=== PATIENT | female | born 1995 | race Caucasian/White ===

== ENCOUNTER 2017-02-01 18:13 | Emergency (ER) | payer BC ==
--- NOTE | 2017-02-01 18:24 | EDM.PDOC ---
ED HPI Trauma - General Chief Complaint: Upper Extremity Injury/Pain Stated Complaint: PT HAS JOY ON LT UNDERARM Time Seen by Provider: 02/01/17 18:20 Source: Reports: Patient History Limitations: Reports: No limitations - History of Present Illness Occurred When: last week Occurred Where: home Method of Injury: unknown Severity: mild Pain/Injury Location: Reports: chest Consciousness: Reports: no loss of consciousness Associated Symptoms: Reports: no other symptoms Allergies/ADRs: Allergies No Known Allergies Allergy (Verified 02/01/17 18:22) Home Medications: Ambulatory Orders Ibuprofen 600 mg PO Q8HR PRN #30 tablet 08/13/14 [Confirmed 02/01/17] DULoxetine [Cymbalta] 02/01/17 Sulfamethoxazole/Trimethoprim [Bactrim Ds Tablet] 1 each PO BID #10 tablet 02/01 buPROPion [Wellbutrin] 02/01/17 Social & Family History - Tobacco Use Smoking Status *Q: Never Smoker Years of Tobacco use: 5 Second Hand Smoke Exposure: Yes - Alcohol Use Days Per Week of Alcohol Use: 0 - Recreational Drug Use Recreational Drug Use: No Review of Systems - Review of Systems Review Of Systems: ROS reveals no pertinent complaints other than HPI. Trauma Exam - Physical Exam Exam: See Below Exam Limited By: No limitations General Appearance: Reports: alert, WD/WN Head: Reports: atraumatic, normocephalic Eyes: bilateral eye: PERRL Ears: Reports: normal external exam Nose: Reports: normal inspection Throat/Mouth: Reports: Normal inspection, Normal lips, Normal teeth, Normal gums , Normal oropharynx, Normal voice, No airway compromise Neck: Reports: non-tender, full range of motion Respiratory Exam: Reports: no respiratory distress, lungs clear, normal breath sounds, no accessory muscle use, chest non-tender Cardiovascular: Reports: normal peripheral pulses, regular rate, rhythm, no edema, no gallop, no JVD, no murmur, no rub Extremities: Reports: no evidence of injury, normal range of motion, no pedal edema Neurologic: Reports: no motor/sensory deficits, normal mood/affect, oriented x 3 Skin: Reports: Normal color, Warm/dry, Rash Comments: Raised erythematous shiny rash no exudate there with palpation - [place] Coma Score Best Eye Response ([place]): (4) open spontaneously Best Verbal Response (Randy): (5) oriented Best Motor Response (Radny): (6) obeys commands Course - Vital Signs Last Recorded V/S: Last Vital Signs Temp 36.6 C 02/01/17 18:24 Pulse 115 H 02/01/17 18:24 Resp 16 02/01/17 18:24 BP 110/81 02/01/17 18:24 Pulse Ox 100 02/01/17 18:24 - Orders/Labs/Meds Meds: Medications Discontinued Medications Generic Name Dose Route Start Last Admin Trade Name Serene PRN Reason Stop Dose Admin Bacitracin 1 dose 02/01/17 18:33 Bacitracin Oint 1 Gm TOP 02/01/17 18:34 ONETIME ONE Departure - Departure Time of Disposition: 18:36 Disposition: Home, Self-Care 01 Condition: good Clinical Impression: Staph infection Prescriptions: Sulfamethoxazole/Trimethoprim [Bactrim Ds Tablet] 1 each PO BID #10 tablet Forms: ED Department Discharge Additional Instructions: The following information is given to patients seen in the emergency department who are being discharged to home. This information is to outline your options for follow-up care. We provide all patients seen in our emergency department with a follow-up referral. The need for follow-up, as well as the timing and circumstances, are variable depending upon the specifics of your emergency department visit. If you don't have a primary care physician on staff, we will provide you with a referral. We always advise you to contact your personal physician following an emergency department visit to inform them of the circumstance of the visit and for follow-up with them and/or the need for any referrals to a consulting specialist. The emergency department will also refer you to a specialist when appropriate. This referral assures that you have the opportunity for followup care with a specialist. All of these measure are taken in an effort to provide you with optimal care, which includes your followup. Under all circumstances we always encourage you to contact your private physician who remains a resource for coordinating your care. When calling for followup care, please make the office aware that this follow-up is from your recent emergency room visit. If for any reason you are refused follow-up, please contact the [facility] emergency department at and asked to speak to the emergency department charge nurse.
[2017-02-01] MEDS ORDERED: Bacitracin Oint 1 GM U/D Packet TOP ONE (18:33)
[2017-02-01 18:47] VITALS: BP 109/65
== END 2017-02-01 18:45 | disposition home or self-care (01) ==
LOC: MW.ED 18:13
DX: B95.8 Unspecified staphylococcus as the cause of diseases classified elsewhere (principal)
CPT/HCPCS: 99282; 99283

== ENCOUNTER 2017-02-10 07:26 | Emergency (ER) | payer BC ==
[2017-02-10] MEDS ORDERED: Ketorolac 60 MG/2 ML SDV IM ONE (07:52)
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
[2017-02-10] MEDS ORDERED: Phenazopyridine 200 MG Tab PO ONE (08:24)
[2017-02-10] MEDS ORDERED: Ciprofloxacin 500 MG Tab PO ONE (08:24)
[2017-02-10 10:02] VITALS: BP 118/86
== END 2017-02-10 09:43 | disposition home or self-care (01) ==
LOC: MW.ED 07:26
DX: N39.0 Urinary tract infection, site not specified (principal); F41.9 Anxiety disorder, unspecified; F32.9 Major depressive disorder, single episode, unspecified; F17.210 Nicotine dependence, cigarettes, uncomplicated
CPT/HCPCS: 81001; 81025; 87086; 96372; 99283; A9270; J1885; 87088; 87186

== ENCOUNTER 2017-06-20 15:41 | Emergency (ER) | payer BC, OTHER ==
[2017-06-20 16:05] VITALS: BP 135/91
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
--- NOTE | 2017-06-21 10:51 | CR ---
EXAM DATE: 06/20/17 PATIENT'S AGE: 22 Patient: PARUL WOOD Facility: [place], [place] Site . Site : 1995 Study: XRay Pelvis [id number]/[id number] 6:04:32 PM Ordering Physician: Doctor Younger Final Report: INDICATION: Pain, Possible Foreign Body TECHNIQUE: Single AP view of the bony pelvis COMPARISON: None FINDINGS: Bones: No gross evidence for fractures or bone lesions. Joint spaces: Unremarkable. Soft tissues: No radiopaque foreign body. IMPRESSION: No radiopaque foreign body. No gross evidence for acute bony abnormality Dictated by Damian Villanueva MD @ 06/20/2017 6:28:14 PM Dictated by: Damian Villanueva MD @ 06/20/2017 18:28:20 (Electronic Signature) Report Signed by Proxy. [facility]
== END 2017-06-20 19:10 ==
LOC: MW.ED 15:41
DX: T19.2XXA Foreign body in vulva and vagina, initial encounter (principal); F17.210 Nicotine dependence, cigarettes, uncomplicated
CPT/HCPCS: 72170; 72170-26; 99283; 99284

== ENCOUNTER 2017-07-24 19:32 | Emergency (ER) | payer BC ==
[2017-07-24 19:41] VITALS: BP 120/71
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
== END 2017-07-24 20:17 | disposition home or self-care (01) ==
LOC: MW.ED 19:32
DX: J40 Bronchitis, not specified as acute or chronic (principal); F32.9 Major depressive disorder, single episode, unspecified; F17.210 Nicotine dependence, cigarettes, uncomplicated
CPT/HCPCS: 99282

== ENCOUNTER 2017-09-24 06:53 | Emergency (ER) | payer BC ==
[2017-09-24 16:40] VITALS: BP 117/73
== END 2017-09-24 07:21 | disposition home or self-care (01) ==
LOC: MW.ED 06:53
DX: B34.9 Viral infection, unspecified (principal)
CPT/HCPCS: 87081; 87804; 87880; 99283

== ENCOUNTER 2018-10-27 14:11 | Emergency (ER) | payer BC ==
[2018-10-27] MEDS ORDERED: Sodium Chloride 0.9% 1,000 ML IV ONE ×2 (15:02→16:34)
[2018-10-27] MEDS ORDERED: Ondansetron 4 MG/2 ML SDV IVPUSH ONE (15:02)
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
[2018-10-27 16:25] LABS: CHLORIDE,CL 102 mmol/L (98-107); SODIUM,NA 137 mmol/L (136-145)
--- NOTE | 2018-10-27 17:46 | US ---
INDICATION: Abdominal pain TECHNIQUE: Limited transabdominal obstetrical ultrasound. COMPARISON: None available FINDINGS: A single live intrauterine gestation is seen in breech presentation. Estimated gestational age based on biparietal diameter, head circumference, abdominal circumference and femur length is 27 weeks and 1 day. There is cardiac activity with a heart rate of 126 BPM. anatomy is not evaluated. The right renal pelvis is measured at 5 mm. The placenta is posterior. The internal cervical os is clear of placental tissue. The cervix measures 3.3 cm. Amniotic fluid volume is within normal limits with an ARGELIA of 15.8 cm. Neither ovary is visualized. No significant free fluid is seen. IMPRESSION: A single live intrauterine gestation at 27 weeks and 1 day by sonographic measurements. The right renal pelvis is measured at 5 mm. anatomy, otherwise, is not evaluated. Correlate with followup sonographic evaluation, as clinically indicated. Nonvisualization of the ovaries. Dictated by Jason Bravo MD @ 10/27/2018 5:40:40 PM Dictated by: Jason Bravo MD @ 10/27/2018 17:44:24 (Electronically Signed)
[2018-10-27 18:11] VITALS: BP 106/58
== END 2018-10-27 18:25 | disposition home or self-care (01) ==
LOC: MW.ED 14:11
DX: O23.42 Unspecified infection of urinary tract in pregnancy, second trimester (principal); Z3A.27 27 weeks gestation of pregnancy; F17.210 Nicotine dependence, cigarettes, uncomplicated
CPT/HCPCS: 36415; 76815; 80053; 81001; 85025; 87804; 93005; 96361; 96374; 99284; J2405; J7040

== ENCOUNTER 2019-01-12 14:13 | Inpatient (IN) | payer BC, MEDICAID ==
[2019-01-12] MEDS ORDERED: Citric Acid/Sodium Citrate Solution 30 ML Cup PO ONE (14:31)
[2019-01-12] MEDS ORDERED: ceFAZolin 2 GM in Premix Bag 1 BAG IV ONE (14:31)
[2019-01-12] MEDS ORDERED: Sodium Chloride 0.9% 10 ML Syringe FLUSH PRN (14:31)
[2019-01-12] MEDS ORDERED: Sodium Chloride 0.9% 10 ML SDV IV PRN (14:31)
[2019-01-12] MEDS ORDERED: Sodium Chloride 0.9% 2.5 ML Syringe FLUSH PRN (14:31)
--- NOTE | 2019-01-12 14:41 | PCM.LDHP ---
L&D History of Present Illness - General Date of Service: 01/12/19 Admit Problem/Dx: Patient Status Order with Admit Dx/Problem 01/12/19 14:31 Patient Status [ADT] Routine Admission Diagnosis/Problem Admission Diagnosis/Problem Source of Information: Patient History Limitations: Reports: No Limitations - History of Present Illness Improves with: Reports: None Worsens with: Reports: None Associated Symptoms: Reports: N - Related Data Allergies/Adverse Reactions: Allergies Allergy/AdvReac Type Severity Reaction Status Date / Time No Known Allergies Allergy Verified 01/09/19 11:14 Home Medications: Home Meds Ondansetron [Zofran ODT] 4 mg PO Q6H PRN #10 tab.dis 10/27/18 [Rx] Cyclobenzaprine [Flexeril] 5 mg PO BEDTIME PRN 12/29/18 [History] Past Medical History HEENT History: Reports: Other (See Below) Other HEENT History: wears glasses Cardiovascular History: Reports: None Other Cardiovascular History: pt reports hx of wearing heart monitor at age 15, pt states there was no dx Respiratory History: Reports: Other (See Below) Other Respiratory History: sports induced asthma in highschool Gastrointestinal History: Reports: None Genitourinary History: Reports: None ADMINISTRATION INTERN History: Reports: Other OB/BYN History: 7 months - Estimated due date 01/20/19 Musculoskeletal History: Reports: None Neurological History: Reports: None Psychiatric History: Reports: ADHD, Anxiety, Depression, Other (See Below) Other Psychiatric History: depression, anxiety and ADHD in the past Endocrine/Metabolic History: Reports: None Hematologic History: Reports: None Immunologic History: Reports: None Oncologic (Cancer) History: Reports: None Dermatologic History: Reports: Eczema - Infectious Disease History Infectious Disease History: Reports: Chicken Pox - Past Surgical History Head Surgeries/Procedures: Reports: None HEENT Surgical History: Reports: None Cardiovascular Surgical History: Reports: None Respiratory Surgical History: Reports: None GI Surgical History: Reports: None Female Surgical History: Reports: Section Endocrine Surgical History: Reports: None Neurological Surgical History: Reports: None Musculoskeletal Surgical History: Reports: None Oncologic Surgical History: Reports: None Social & Family History - Family History Family Medical History: Noncontributory - Tobacco Use Smoking Status *Q: Current Every Day Smoker Packs/Tins Daily: 0.7 - Caffeine Use Caffeine Use: Reports: Coffee - Recreational Drug Use Recreational Drug Use: No H&P Review of Systems - Review of Systems: Review Of Systems: See Below General: Reports: No Symptoms HEENT: Reports: No Symptoms Pulmonary: Reports: No Symptoms Cardiovascular: Reports: No Symptoms Gastrointestinal: Reports: No Symptoms Genitourinary: Reports: No Symptoms Musculoskeletal: Reports: No Symptoms Skin: Reports: No Symptoms Psychiatric: Reports: No Symptoms Neurological: Reports: No Symptoms Hematologic/Lymphatic: Reports: No Symptoms Immunologic: Reports: No Symptoms L&D Exam - Exam Exam: See Below - Vital Signs Weight: 77.564 kg - OB Specific Fundal Height In cm: 39 Contraction Intensity: Mild Movement: Active Heart Tones: Present Presentation: Breech - Shaw Score Shaw Score Cervix Position: Midposition Shaw Score Consistency: Medium Shaw Score Effacement: 31-50% Shaw Score Dilation: 1-2 cm Shaw Score 's Station: -3 Shaw Score Total: 4 - Exam General: Alert, Oriented HEENT: PERRLA, Conjunctiva Clear, EACs Clear, EOMI, Hearing Intact, Mucosa Moist & [place], Nares Patent, Normal Nasal Septum, Posterior Pharynx Clear, TMs Clear Neck: Supple, Trachea Midline Lungs: Clear to Auscultation, Normal Respiratory Effort Cardiovascular: Regular Rate, Regular Rhythm GI/Abdominal Exam: Normal Bowel Sounds, Soft, Non-Tender, No Organomegaly, No Distention, No Abnormal Bruit, No Mass, Pelvis Stable Rectal Exam: Normal Exam, Normal Rectal Tone Genitourinary: Normal external exam, Normal bimanual exam, Normal speculum exam Back Exam: Normal Inspection, Full Range of Motion Extremities: Normal Inspection, Normal Range of Motion, Non-Tender, No Pedal Edema, Normal Capillary Refill Skin: Warm, Dry, Intact Neurological: Cranial Nerves Intact, Reflexes Equal Bilateral Psychiatric: Alert, Normal Affect, Normal Mood Problem List Initiated/Reviewed/Updated: Yes Orders Last 24hrs: Active Orders 24 hr Category Date Time Status Patient Status [ADT] Routine ADT 01/12/19 14:31 Ordered Non Stress Test [RC] PER UNIT ROUTINE Care 01/12/19 14:31 Ordered Notify Provider Vital Signs [RC] PRN Care 01/12/19 14:35 Ordered Procedure Site Prep Instruct [RC] ASDIRECTED Care 01/12/19 14:31 Ordered Up ad Loly [RC] ASDIRECTED Care 01/12/19 14:31 Ordered Verify Patient Consent Obtain [RC] ASDIRECTED Care 01/12/19 14:31 Ordered Vital Signs [RC] PER UNIT ROUTINE Care 01/12/19 14:31 Ordered CBC W/O DIFF,HEMOGRAM [HEME] Routine Lab 01/12/19 14:31 Ordered TYPE AND SCREEN [BBK] Routine Lab 01/12/19 14:31 Ordered Citric Acid/Sodium Citrate [Bicitra Solution] Med 01/12/19 14:31 Once 30 ml PO ONETIME ONE Lactated Ringers [Ringers, Lactated] 1,000 ml Med 01/12/19 14:45 Ordered IV BOLUS ceFAZolin [Ancef] 2 gm Med 01/12/19 14:31 Ordered Premix Bag 1 bag IV ONETIME Assessment/Plan Comment:: This patient is followed joining me by me and Estela Hi_nurse fulling machine operator the patient have a previous section she was planning to have a trial of labor however she is presented with a breech presentation and was confirmed by ultrasound. 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
[2019-01-12] MEDS ORDERED: Oxytocin/0.9 % Sodium Chloride 30 UNIT/500 ML BAG IV SCH (14:45)
[2019-01-12] MEDS: Lactated Ringers 1,000 ML IV SCH ×2 (14:50→16:48)
[2019-01-12] MEDS ORDERED: Metoclopramide 10 MG/2 ML SDV IVPUSH SCH (15:30)
[2019-01-12] MEDS ORDERED: Acetaminophen/oxyCODONE 325-5 MG Tab PO PRN ×2 (16:47→17:23)
[2019-01-12] MEDS ORDERED: Ondansetron 4 MG/2 ML SDV IVPUSH PRN ×2 (16:47→17:23)
[2019-01-12] MEDS ORDERED: Naloxone 0.4 MG/ML Syringe IVPUSH PRN (16:47)
[2019-01-12] MEDS ORDERED: fentaNYL 100 MCG/2 ML SDV IVPUSH PRN (16:47)
[2019-01-12] MEDS ORDERED: diphenhydrAMINE 50 MG/ML SDV IVPUSH PRN ×2 (16:47→17:23)
--- NOTE | 2019-01-12 16:47 | PCM.PREANE ---
Preanesthetic Assessment - Anesthesia/Transfusion/Family Hx Anesthesia History: Prior Anesthesia Without Reaction Other Type of Anesthesia Reaction Comment: "freaked out" with first c/section after baby was delivered Transfusion History: No Prior Transfusion(s) - Review of Systems General: No Symptoms Pulmonary: No Symptoms Cardiovascular: No Symptoms Gastrointestinal: No Symptoms Neurological: No Symptoms - Physical Assessment NPO Status Date: 01/12/19 NPO Status Time: 01:30 (t aware of increased risks Dotty Conway states needs to be done, necesitates "delivery at 17:30". per Dr. Conway.) Height: 1.63 m Weight: 77.564 kg ASA Class: 2E Mental Status: Alert & Oriented x3 Airway Class: Mallampati = 2 Dentition: Reports: Normal Dentition ROM/Head Extension: Full Lungs: Clear to Auscultation, Normal Respiratory Effort Cardiovascular: Regular Rate, Regular Rhythm - Lab Values: Laboratory Last Values WBC 12.01 K/uL (4.0-11.0) H 01/12/19 15:01 RBC 3.84 M/uL (4.30-5.90) L 01/12/19 15:01 Hgb 11.5 g/dL (12.0-16.0) L 01/12/19 15:01 Hct 34.2 % (36.0-46.0) L 01/12/19 15:01 MCV 89.1 fL (80.0-98.0) 01/12/19 15:01 MCH 29.9 pg (27.0-32.0) 01/12/19 15:01 MCHC 33.6 g/dL (31.0-37.0) 01/12/19 15:01 RDW Std Deviation 42.4 fl (28.0-62.0) 01/12/19 15:01 RDW Coeff of Tessa 13 % (11.0-15.0) 01/12/19 15:01 Plt Count 274 K/uL (150-400) 01/12/19 15:01 MPV 11.70 fL (7.40-12.00) 01/12/19 15:01 Nucleated RBC % 0.0 /100WBC 01/12/19 15:01 Nucleated RBCs # 0 K/uL 01/12/19 15:01 - Allergies Allergies/Adverse Reactions: Allergies Allergy/AdvReac Type Severity Reaction Status Date / Time No Known Allergies Allergy Verified 01/09/19 11:14 - Acknowledgements Anesthesia Type Planned: Spinal Pt an Appropriate Candidate for the Planned Anesthesia: Yes Alternatives and Risks of Anesthesia Discussed w Pt/Guardian: Yes Pt/Guardian Understands and Agrees with Anesthesia Plan: Yes PreAnesthesia Questionnaire HEENT History: Reports: Other (See Below) Other HEENT History: wears glasses Cardiovascular History: Reports: None Other Cardiovascular History: pt reports hx of wearing heart monitor at age 15, pt states there was no dx Respiratory History: Reports: Other (See Below) Other Respiratory History: sports induced asthma in highschool Gastrointestinal History: Reports: None Genitourinary History: Reports: None [employer] History: Reports: Other OB/BYN History: 7 months - Estimated due date 01/20/19 Musculoskeletal History: Reports: None Neurological History: Reports: None Psychiatric History: Reports: ADHD, Anxiety, Depression, Other (See Below) Other Psychiatric History: depression, anxiety and ADHD in the past Endocrine/Metabolic History: Reports: None Hematologic History: Reports: None Immunologic History: Reports: None Oncologic (Cancer) History: Reports: None Dermatologic History: Reports: Eczema - Infectious Disease History Infectious Disease History: Reports: Chicken Pox - Past Surgical History Head Surgeries/Procedures: Reports: None HEENT Surgical History: Reports: None Cardiovascular Surgical History: Reports: None Respiratory Surgical History: Reports: None GI Surgical History: Reports: None Female Surgical History: Reports: Section Endocrine Surgical History: Reports: None Neurological Surgical History: Reports: None Musculoskeletal Surgical History: Reports: None Oncologic Surgical History: Reports: None - SUBSTANCE USE Smoking Status *Q: Current Every Day Smoker Tobacco Use Within Last Twelve Months: Cigarettes Second Hand Smoke Exposure: Yes Recreational Drug Use History: No - HOME MEDS Home Medications: Home Meds Ondansetron [Zofran ODT] 4 mg PO Q6H PRN #10 tab.dis 10/27/18 [Rx] Cyclobenzaprine [Flexeril] 5 mg PO BEDTIME PRN 12/29/18 [History] - CURRENT (IN HOUSE) MEDS Current Meds: Current Medications Lactated Ringer's (Ringers, Lactated) 1,000 mls @ 500 mls/hr IV BOLUS [facility] Last Admin: 01/12/19 14:50 Dose: 500 mls/hr Oxytocin/Sodium Chloride (Oxytocin 30 Unit/500 Ml-Ns) 30 unit in 500 mls @ 250 mls/hr IV TITRATE [facility] Metoclopramide HCl (Reglan) 10 mg IVPUSH .ONCE [facility] Last Admin: 01/12/19 15:34 Dose: 10 mg Sodium Chloride (Saline Flush) 10 ml FLUSH ASDIRECTED PRN PRN Reason: Keep Vein Open Sodium Chloride (Saline Flush) 2.5 ml FLUSH ASDIRECTED PRN PRN Reason: Keep Vein Open Sodium Chloride (Normal Saline) 10 ml IV ASDIRECTED PRN PRN Reason: IV Use Discontinued Medications Citric Acid/Sodium Citrate (Bicitra Solution) 30 ml PO ONETIME ONE Stop: 01/12/19 14:32 Cefazolin Sodium/Dextrose 2 gm (/ Premix) 50 mls @ 100 mls/hr IV ONETIME ONE Stop: 01/12/19 15:00
[2019-01-12] MEDS ORDERED: Octyl 2-Cyanoacrylate 1 Tube ONE (16:53)
[2019-01-12] MEDS ORDERED: Morphine PF 10 MG/10 ML SDV ONE (16:54)
[2019-01-12] MEDS ORDERED: Lanolin 100% Cream 7 GM Tube TOP PRN (17:23)
[2019-01-12] MEDS ORDERED: Bisacodyl 10 MG Supp RECTAL PRN (17:23)
[2019-01-12] MEDS ORDERED: Lactated Ringers 1,000 ML IV SCH (17:30)
[2019-01-12] MEDS: Ketorolac 30 MG/ML SDV IVPUSH SCH ×2 (18:00→23:56)
--- NOTE | 2019-01-12 18:04 | PCM.OPNOTE ---
- General Post-Op/Procedure Note Date of Surgery/Procedure: 01/12/19 Operative Procedure(s): Repeat C/section Pre Op Diagnosis: IUP 39wks, Previous C/section, Breech presentation Post-Op Diagnosis: Same Anesthesia Technique: General Mask Primary Surgeon: Valerio Conway Medical Insurance Clerk: Estela Hi EBL in mLs: 600 Complications: None Condition: Good
--- NOTE | 2019-01-12 19:15 | PCM.POSTAN ---
POST ANESTHESIA ASSESSMENT - MENTAL STATUS Mental Status: Alert - VITAL SIGNS Pulse Rate: 75 SaO2: 98 Resp Rate: 98 Blood Pressure: 118/62 Temperature: 97.2 C - RESPIRATORY Respiratory Status: Respiratory Rate WNL, Airway Patent, O2 Saturation Stable - CARDIOVASCULAR CV Status: Pulse Rate WNL, Blood Pressure Stable - GASTROINTESTINAL GI Status: No Symptoms - POST OP HYDRATION Hydration Status: Adequate & Stable
[2019-01-12] MEDS: Nalbuphine 10 MG/1 ML Vial IVPUSH PRN (19:31)
[2019-01-12] MEDS: Docusate Sodium 100 MG Cap PO SCH (21:21)
--- NOTE | 2019-01-13 01:06 | OR ---
SURGEON: Valerio Conway MD DATE OF PROCEDURE: PREOPERATIVE DIAGNOSES: Intrauterine , previous section, breech presentation. POSTOPERATIVE DIAGNOSES: Intrauterine , previous section, breech presentation. OPERATION PERFORMED: Repeat low-transverse section. PRIMARY SURGEON: Valerio Conway MD. PERFORATOR OPERATOR: Estela Hi CNM. ANESTHESIA: Spinal, Mr. Stefan Villagomez and Dr. Hale. ESTIMATED BLOOD LOSS: 600 mL. COMPLICATIONS: None. FINDING: Male fetus in joshua breech presentation. INDICATION FOR SURGERY: The patient is term. She had a previous section. She has a bicornuate uterus and she is in a breech presentation and she is admitted for elective repeat section. She is not a candidate for external version. PROCEDURE IN DETAIL: The patient was brought to the OR, properly identified, and after adequate level of spinal anesthesia with a Krueger catheter in the bladder, the patient was prepped and draped in sterile fashion as usual. Krueger catheter inserted and a low-transverse Pfannenstiel skin incision through the old scar was done. The Collin's fascia and rectus fascia were opened in direction of the incision. The 2 recti muscles were and peritoneal cavity was entered. The bladder flap was raised in the usual manner pushing the bladder away from the lower uterine segment. Low transverse uterine incision was done, extending manually with hand. It was noticed that the amniotic fluid was clear. The patient presented in a joshua breech presentation, delivered without any problem. Two nuchal cords were noted. The fetus was cried immediately. scores reported to be 8 and 9. The weight is not available. The fetus was delivered and handed to the streetcar repairer who is present at the time of the delivery for resuscitation. The placenta delivered spontaneous, complete, and intact. Then, repair of the lower uterine segment was done with 2-0 Vicryl continuous interlocking in 2 layers, reperitonealization with 3-0 Vicryl continuous and then the peritoneal cavity evacuated completely from all blood and blood clot and closed with 3-0 Vicryl continuous. The rectus fascia was closed with #1 PDS single strand continuous, the Collin's fascia with 3-0 Vicryl continuous and the skin closed with Stratafix in a subcuticular fashion and Dermabond was used. Instrument and sponge counts were correct. The patient tolerated the procedure well and went to recovery room in stable general condition. DAMIAN / TERESA /[id number]
[2019-01-13] MEDS: Nalbuphine 10 MG/1 ML Vial IVPUSH PRN (03:38)
[2019-01-13] MEDS: Ketorolac 30 MG/ML SDV IVPUSH SCH ×4 (05:13→18:14)
[2019-01-13] MEDS: Nicotine 21 MG/24 Hr Patch TRDERM SCH ×2 (06:41→10:01)
--- NOTE | 2019-01-13 09:01 | PCM.PNPP ---
- General Info Date of Service: 01/13/19 Admission Dx/Problem (Free Text): Patient Status Order with Admit Dx/Problem 01/12/19 14:31 Patient Status [ADT] Routine Admission Diagnosis/Problem Admission Diagnosis/Problem Functional Status: Reports: Pain Controlled, Tolerating Diet, Ambulating. Denies: Other (Cath out and pt attempting to urinate.) - Review of Systems General: Reports: No Symptoms HEENT: Reports: No Symptoms Pulmonary: Reports: No Symptoms Cardiovascular: Reports: No Symptoms Gastrointestinal: Reports: No Symptoms Genitourinary: Reports: No Symptoms Musculoskeletal: Reports: No Symptoms Skin: Reports: No Symptoms Neurological: Reports: No Symptoms Psychiatric: Reports: No Symptoms - Patient Data Vital Signs - Most Recent: Last Vital Signs Temp 36.8 C 01/13/19 08:16 Pulse 88 01/13/19 08:16 Resp 18 01/13/19 08:16 BP 109/69 01/13/19 08:16 Pulse Ox 96 01/13/19 08:16 Weight - Most Recent: 77.564 kg I&O - Last 24 Hours: Intake & Output 01/12/19 01/13/19 01/13/19 22:59 06:59 14:59 Intake Total 1600 1000 Output Total 200 2000 Balance 1400 -1000 Lab Results - Last 24 Hours: Laboratory Results - last 24 hr 01/12/19 01/12/19 01/13/19 Range/Units 15:01 15:01 05:55 WBC 12.01 H (4.0-11.0) K/uL RBC 3.84 L (4.30-5.90) M/uL Hgb 11.5 L 12.2 (12.0-16.0) g/dL Hct 34.2 L 36.9 (36.0-46.0) % MCV 89.1 (80.0-98.0) fL MCH 29.9 (27.0-32.0) pg MCHC 33.6 (31.0-37.0) g/dL RDW Std Deviation 42.4 (28.0-62.0) fl RDW Coeff of Tessa 13 (11.0-15.0) % Plt Count 274 (150-400) K/uL MPV 11.70 (7.40-12.00) fL Nucleated RBC % 0.0 /100WBC Nucleated RBCs # 0 K/uL Blood Type O POSITIVE Antibody Screen NEGATIVE Med Orders - Current: Current Medications Bisacodyl (Dulcolax) 10 mg RECTAL ONETIME PRN PRN Reason: Constipation Diphenhydramine HCl (Benadryl) 25 mg IVPUSH Q4H PRN PRN Reason: Itching Stop: 01/13/19 16:47 Last Admin: 01/13/19 00:05 Dose: 25 mg Diphenhydramine HCl (Benadryl) 25 mg IVPUSH Q6H PRN PRN Reason: Itching or Nausea Docusate Sodium (Colace) 100 mg PO BID [facility] Last Admin: 01/12/19 21:21 Dose: 100 mg Emollient Ointment (Lansinoh Hpa) 0 gm TOP ASDIRECTED PRN PRN Reason: Sore Nipples Fentanyl (Sublimaze) 50 mcg IVPUSH Q1H PRN PRN Reason: Pain (severe 7-10) Lactated Ringer's (Ringers, Lactated) 1,000 mls @ 500 mls/hr IV BOLUS [facility] Last Admin: 01/12/19 16:48 Dose: 500 mls/hr Oxytocin/Sodium Chloride (Oxytocin 30 Unit/500 Ml-Ns) 30 unit in 500 mls @ 250 mls/hr IV TITRATE [facility] Lactated Ringer's (Ringers, Lactated) 1,000 mls @ 125 mls/hr IV ASDIRECTED [facility] Last Admin: 01/12/19 20:11 Dose: 125 mls/hr Ibuprofen (Motrin) 800 mg PO Q8H PRN PRN Reason: mild pain or fever Ketorolac Tromethamine (Toradol) 30 mg IVPUSH Q6H [facility] Stop: 01/13/19 17:31 Last Admin: 01/13/19 05:13 Dose: 30 mg Metoclopramide HCl (Reglan) 10 mg IVPUSH .ONCE [facility] Last Admin: 01/12/19 15:34 Dose: 10 mg Nalbuphine HCl (Nubain) 5 mg IVPUSH ASDIRECTED PRN PRN Reason: Itching Last Admin: 01/13/19 03:38 Dose: 5 mg Naloxone HCl (Narcan) 0.1 mg IVPUSH ONETIME PRN PRN Reason: Respiratory Depression Stop: 01/13/19 16:47 Nicotine (Habitrol) 21 mg TRDERM DAILY [facility] Last Admin: 01/13/19 06:41 Dose: 21 mg Ondansetron HCl (Zofran) 4 mg IVPUSH Q6H PRN PRN Reason: Nausea Ondansetron HCl (Zofran) 4 mg IVPUSH Q4H PRN PRN Reason: Nausea/Vomiting Last Admin: 01/12/19 21:21 Dose: 4 mg Oxycodone/Acetaminophen (Percocet 325-5 Mg) 2 tab PO Q6H PRN PRN Reason: Pain (moderate 4-6) Oxycodone/Acetaminophen (Percocet 325-5 Mg) 1 tab PO Q4H PRN PRN Reason: Pain (moderate 4-6) Oxycodone/Acetaminophen (Percocet 325-5 Mg) 2 tab PO Q4H PRN PRN Reason: Pain (moderate 4-6) Sodium Chloride (Saline Flush) 10 ml FLUSH ASDIRECTED PRN PRN Reason: Keep Vein Open Sodium Chloride (Saline Flush) 2.5 ml FLUSH ASDIRECTED PRN PRN Reason: Keep Vein Open Sodium Chloride (Normal Saline) 10 ml IV ASDIRECTED PRN PRN Reason: IV Use Discontinued Medications Citric Acid/Sodium Citrate (Bicitra Solution) 30 ml PO ONETIME ONE Stop: 01/12/19 14:32 Cefazolin Sodium/Dextrose 2 gm (/ Premix) 50 mls @ 100 mls/hr IV ONETIME ONE Stop: 01/12/19 15:00 Morphine Sulfate (Duramorph Pf) Confirm Administered Dose 10 mg .ROUTE .STK-MED ONE Stop: 01/12/19 16:55 Octyl Cyanoacrylate (Dermabond Advance) Confirm Administered Dose 1 applic .ROUTE .STK-MED ONE Stop: 01/12/19 16:54 - Interaction Infant Disposition, : in Room with Family Interaction: Holding Infant Infant Feeding: Breastfed ; Nursed Well Support Person: Significant Other - Recovery Exam Fundal Tone: Firm Fundal Level: At Umbilicus Fundal Placement: Midline Lochia Amount: Scant Lochia Color: Rubra/Red Perineum Description: Intact, Minimal Bruising/Swelling Episiotomy/Laceration: None Bladder Status: Indwelling Catheter in Place Urinary Elimination: Indwelling Catheter - Exam General: Alert, Oriented, Cooperative, No Acute Distress Lungs: Normal Respiratory Effort GI/Abdominal Exam: Soft, Non-Tender Extremities: Normal Range of Motion Skin: Warm, Dry, Intact Wound/Incisions: Healing Well, Dressing Dry and Intact Neurological: No New Focal Deficit, Normal Gait, Normal Speech, Normal Tone, Strength Equal Bilateral Psy/Mental Status: Alert, Normal Affect, Normal Mood - Problem List & Annotations (1) Supervision of normal IUP (intrauterine ) in multigravida SNOMED Code(s): 744232435, 961352181, 969303640 Code(s): Z34.80 - ENCOUNTER FOR SUPRVSN OF NORMAL , UNSP TRIMESTER Status: Acute Priority: High Current Visit: Yes Qualifiers: Trimester: third trimester Qualified Code(s): Z34.83 - Encounter for supervision of other normal , third trimester (2) section SNOMED Code(s): 21291348 - section Status: Acute Priority: High Current Visit: No - Problem List Review Problem List Initiated/Reviewed/Updated: Yes - My Orders Last 24 Hours: My Active Orders 01/13/19 06:15 Nicotine [Habitrol] 21 mg TRDERM DAILY - Plan Plan:: This patient is followed joining me by me and Estela Hi_nurse business unit controller the patient have a previous section she was planning to have a trial of labor however she is presented with a breech presentation and was confirmed by ultrasound. 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 PPD#1 A: VSS, AF, Out of bed attempting to urinate. Breast feeding well, pain min with meds. P: Continue poc
[2019-01-13] MEDS: Docusate Sodium 100 MG Cap PO SCH ×2 (09:03→21:49)
[2019-01-13] MEDS: Acetaminophen/oxyCODONE 325-5 MG Tab PO PRN (23:48)
[2019-01-14] MEDS: Acetaminophen/oxyCODONE 325-5 MG Tab PO PRN (05:06)
[2019-01-14] MEDS: Ibuprofen 800 MG Tab PO PRN ×2 (05:07→12:34)
--- NOTE | 2019-01-14 08:35 | PCM48HPAN ---
Post Anesthesia Note - EVALUATION WITHIN 48HRS OF ANESTHETIC Vital Signs in Normal Range: Yes Patient Participated in Evaluation: Yes Respiratory Function Stable: Yes Airway Patent: Yes Cardiovascular Function Stable: Yes Hydration Status Stable: Yes Pain Control Satisfactory: Yes Nausea and Vomiting Control Satisfactory: Yes Mental Status Recovered: Yes Pulse Rate: 75 Resp Rate: 16 Temperature: 97.2 C Blood Pressure: 118/62 - COMMENTS/OBSERVATIONS Free Text/Narrative:: Denies any complaints
--- NOTE | 2019-01-14 08:37 | PCM.DCSUM1 ---
Discharge Summary - Hospital Course Free Text/Narrative:: Discharge home with infant. Follow up in 1 week for post op and 6 weeks for visit. Diagnosis: Stroke: No - Discharge Data Discharge Date: 01/14/19 Discharge Disposition: Home, Self-Care 01 Condition: Good - Discharge Diagnosis/Problem(s) (1) Supervision of normal IUP (intrauterine ) in multigravida SNOMED Code(s): 860653052, 321423999, 993237081 ICD Code: Z34.80 - ENCOUNTER FOR SUPRVSN OF NORMAL , UNSP TRIMESTER Status: Acute Priority: High Current Visit: Yes Qualifiers: Trimester: third trimester Qualified Code(s): Z34.83 - Encounter for supervision of other normal , third trimester (2) section SNOMED Code(s): 30775260 - section Status: Acute Priority: High Current Visit: No - Patient Summary/Data Operative Procedure(s) Performed: Repeat C/section - Patient Instructions Diet: Usual Diet as Tolerated Activity: As Tolerated, No Strenuous Activities, Rest and Relax Today Driving: Do Not Drive Showering/Bathing: May Shower Wound/Incision Care: Keep Operative Site/Wound Site Clean and Dry Notify Provider of: Fever, Increased Pain, Swelling and Redness, Drainage, Nausea and/or Vomiting Other/Special Instructions: Discharge home with . Follow up in 1 week for post op and 6 weeks for visit. - Discharge Plan *PRESCRIPTION DRUG MONITORING PROGRAM REVIEWED*: Not Applicable *COPY OF PRESCRIPTION DRUG MONITORING REPORT IN PATIENT SARA: Not Applicable Prescriptions/Med Rec: Acetaminophen/oxyCODONE [Percocet 325-5 MG] 2 tab PO Q6H PRN #30 tablet PRN Reason: Pain (Moderate 4-6) Ibuprofen [Motrin] 800 mg PO Q8H PRN #90 tablet PRN Reason: mild pain or fever Home Medications: Home Meds Ondansetron [Zofran ODT] 4 mg PO Q6H PRN #10 tab.dis 10/27/18 [Rx] Cyclobenzaprine [Flexeril] 5 mg PO BEDTIME PRN 12/29/18 [History] Acetaminophen/oxyCODONE [Percocet 325-5 MG] 2 tab PO Q6H PRN #30 tablet [Rx] Ibuprofen [Motrin] 800 mg PO Q8H PRN #90 tablet 01/14/19 [Rx] Oxygen Therapy Mode: Room Air Referrals: [facility] [Outside] Valerio Conway MD [Physician] - 01/21/19 4:00 pm - Discharge Summary/Plan Comment DC Time >30 min.: Yes - General Info Date of Service: 01/14/19 Admission Dx/Problem (Free Text: Patient Status Order with Admit Dx/Problem 01/12/19 14:31 Patient Status [ADT] Routine Admission Diagnosis/Problem Admission Diagnosis/Problem Functional Status: Reports: Pain Controlled, Tolerating Diet, Ambulating, Urinating - Review of Systems General: Reports: No Symptoms HEENT: Reports: No Symptoms Pulmonary: Reports: No Symptoms Cardiovascular: Reports: No Symptoms Gastrointestinal: Reports: No Symptoms Genitourinary: Reports: No Symptoms Musculoskeletal: Reports: No Symptoms Skin: Reports: No Symptoms Neurological: Reports: No Symptoms Psychiatric: Reports: No Symptoms - Patient Data Vitals - Most Recent: Last Vital Signs Temp 36.3 C 01/14/19 04:32 Pulse 80 01/14/19 04:32 Resp 16 01/14/19 04:32 BP 101/62 01/14/19 04:32 Pulse Ox 96 01/14/19 04:32 Weight - Most Recent: 77.564 kg Med Orders - Current: Current Medications Bisacodyl (Dulcolax) 10 mg RECTAL ONETIME PRN PRN Reason: Constipation Diphenhydramine HCl (Benadryl) 25 mg IVPUSH Q6H PRN PRN Reason: Itching or Nausea Docusate Sodium (Colace) 100 mg PO BID [facility] Last Admin: 01/13/19 21:49 Dose: 100 mg Emollient Ointment (Lansinoh Hpa) 0 gm TOP ASDIRECTED PRN PRN Reason: Sore Nipples Fentanyl (Sublimaze) 50 mcg IVPUSH Q1H PRN PRN Reason: Pain (severe 7-10) Lactated Ringer's (Ringers, Lactated) 1,000 mls @ 500 mls/hr IV BOLUS ON LICENSE OF [facility] Last Admin: 01/12/19 16:48 Dose: 500 mls/hr Oxytocin/Sodium Chloride (Oxytocin 30 Unit/500 Ml-Ns) 30 unit in 500 mls @ 250 mls/hr IV TITRATE ON LICENSE OF [facility] Lactated Ringer's (Ringers, Lactated) 1,000 mls @ 125 mls/hr IV ASDIRECTED ON LICENSE OF [facility] Last Admin: 01/12/19 20:11 Dose: 125 mls/hr Ibuprofen (Motrin) 800 mg PO Q8H PRN PRN Reason: mild pain or fever Last Admin: 01/14/19 05:07 Dose: 800 mg Metoclopramide HCl (Reglan) 10 mg IVPUSH .ONCE ON [facility] Last Admin: 01/12/19 15:34 Dose: 10 mg Nalbuphine HCl (Nubain) 5 mg IVPUSH ASDIRECTED PRN PRN Reason: Itching Last Admin: 01/13/19 03:38 Dose: 5 mg Nicotine (Habitrol) 21 mg TRDERM DAILY ON [facility] Last Admin: 01/13/19 10:01 Dose: Not Given Ondansetron HCl (Zofran) 4 mg IVPUSH Q6H PRN PRN Reason: Nausea Ondansetron HCl (Zofran) 4 mg IVPUSH Q4H PRN PRN Reason: Nausea/Vomiting Last Admin: 01/12/19 21:21 Dose: 4 mg Oxycodone/Acetaminophen (Percocet 325-5 Mg) 2 tab PO Q6H PRN PRN Reason: Pain (moderate 4-6) Oxycodone/Acetaminophen (Percocet 325-5 Mg) 1 tab PO Q4H PRN PRN Reason: Pain (moderate 4-6) Last Admin: 01/14/19 05:06 Dose: 1 tab Oxycodone/Acetaminophen (Percocet 325-5 Mg) 2 tab PO Q4H PRN PRN Reason: Pain (moderate 4-6) Sodium Chloride (Saline Flush) 10 ml FLUSH ASDIRECTED PRN PRN Reason: Keep Vein Open Sodium Chloride (Saline Flush) 2.5 ml FLUSH ASDIRECTED PRN PRN Reason: Keep Vein Open Sodium Chloride (Normal Saline) 10 ml IV ASDIRECTED PRN PRN Reason: IV Use Discontinued Medications Citric Acid/Sodium Citrate (Bicitra Solution) 30 ml PO ONETIME ONE Stop: 01/12/19 14:32 Last Admin: 01/13/19 09:59 Dose: Not Given Diphenhydramine HCl (Benadryl) 25 mg IVPUSH Q4H PRN PRN Reason: Itching Stop: 01/13/19 16:47 Last Admin: 01/13/19 00:05 Dose: 25 mg Cefazolin Sodium/Dextrose 2 gm (/ Premix) 50 mls @ 100 mls/hr IV ONETIME ONE Stop: 01/12/19 15:00 Last Admin: 01/13/19 09:59 Dose: Not Given Ketorolac Tromethamine (Toradol) 30 mg IVPUSH Q6H [facility] Stop: 01/13/19 17:31 Last Admin: 01/13/19 18:14 Dose: 30 mg Morphine Sulfate (Duramorph Pf) Confirm Administered Dose 10 mg .ROUTE .STK-MED ONE Stop: 01/12/19 16:55 Naloxone HCl (Narcan) 0.1 mg IVPUSH ONETIME PRN PRN Reason: Respiratory Depression Stop: 01/13/19 16:47 Octyl Cyanoacrylate (Dermabond Advance) Confirm Administered Dose 1 applic .ROUTE .STK-MED ONE Stop: 01/12/19 16:54 Last Admin: 01/13/19 09:59 Dose: Not Given - Exam General: Reports: Alert, Oriented, Cooperative Lungs: Reports: Clear to Auscultation, Normal Respiratory Effort Cardiovascular: Reports: Regular Rate, Regular Rhythm, No Murmurs GI/Abdominal Exam: Normal Bowel Sounds, Soft, Non-Tender (Female) Exam: Vaginal Bleeding Rectal (Female) Exam: Deferred Back Exam: Reports: Normal Inspection, Full Range of Motion Extremities: Normal Inspection, Normal Range of Motion, Non-Tender, No Pedal Edema Skin: Reports: Warm, Dry, Intact Wound/Incisions: Reports: Healing Well, Dressing Dry and Intact, No Drainage. Denies: Erythema Neurological: Reports: No New Focal Deficit, Normal Speech, Normal Tone, Strength Equal Bilateral Psy/Mental Status: Reports: Alert, Normal Affect, Normal Mood
[2019-01-14] MEDS: Docusate Sodium 100 MG Cap PO SCH (09:22)
[2019-01-14] MEDS: Nicotine 21 MG/24 Hr Patch TRDERM SCH (09:22)
[2019-01-14 09:48] VITALS: BP 125/85
== END 2019-01-14 14:57 | disposition home or self-care (01) | DRG 540 ==
LOC: MW.OB 14:13
PROVIDERS: ADMIT Obstetrics & Gynecology; ATTEND Obstetrics & Gynecology
PROC: 10D00Z1 Extraction of Products of Conception, Low, Open Approach (ICD-10-PCS; principal; 2019-01-12)
DX: O34.211 Maternal care for low transverse scar from previous cesarean delivery (principal); N85.8 Other specified noninflammatory disorders of uterus; Z37.0 Single live birth; O99.344 Other mental disorders complicating childbirth; O32.1XX0 Maternal care for breech presentation, not applicable or unspecified; F41.9 Anxiety disorder, unspecified; F32.9 Major depressive disorder, single episode, unspecified; O99.334 Smoking (tobacco) complicating childbirth; F17.210 Nicotine dependence, cigarettes, uncomplicated; O34.03 Maternal care for unspecified congenital malformation of uterus, third trimester; Q51.3 Bicornate uterus; O69.81X0 Labor and delivery complicated by cord around neck, without compression, not applicable or unspecified; Z3A.39 39 weeks gestation of pregnancy
CPT/HCPCS: 36415; 59025; 85014; 85018; 85027; 86850; 86900; 86901; A9270-GY; J1200; J1885; J2270; J2300; J2405; J2765; J7120

== ENCOUNTER 2019-12-04 10:25 | Emergency (ER) | payer MEDICAID ==
[2019-12-04] MEDS ORDERED: Ondansetron 4 MG/2 ML SDV IVPUSH ONE (11:05)
[2019-12-04] MEDS ORDERED: Sodium Chloride 0.9% 1,000 ML IV SCH (11:15)
[2019-12-04] MEDS ORDERED: Phenazopyridine 200 MG Tab PO ONE (11:49)
[2019-12-04] MEDS ORDERED: Ketorolac 30 MG/ML SDV IVPUSH ONE (11:49)
[2019-12-04 11:53] LABS: BLOOD UREA NITROGEN,BUN 6 mg/dL (7.0-18.0); CARBON DIOXIDE,CO2 23.3 mmol/L (21.0-32.0); CHLORIDE,CL 102 mmol/L (98-107); GLUCOSE RANDOM 112 mg/dL (74-106); POTASSIUM,K 3.4 mmol/L (3.5-5.1); SODIUM,NA 138 mmol/L (136-145)
--- NOTE | 2019-12-04 12:24 | EDM.PDOC ---
ED HPI GENERAL MEDICAL PROBLEM - General Chief Complaint: Abdominal Pain Stated Complaint: PERSISTANT STOMACH PAIN Time Seen by Provider: 12/04/19 11:05 Source of Information: Reports: Patient History Limitations: Reports: No Limitations - History of Present Illness INITIAL COMMENTS - FREE TEXT/NARRATIVE: HISTORY AND PHYSICAL: History of present illness: Patient is a 24-year-old female who presents to the emergency room with complaints of bilateral flank pain and suprapubic pain x10 days. She was seen at the [facility] on 11/30/2027 and placed on Septra for UTI. She states her symptoms have not improved and decided to come to the emergency room for evaluation. She also complains of some nausea and vomiting and concerned that she has not been able to keep down much fluids. Patient denies any fever, chills, headache, change in vision, syncope or near syncope. Denies any chest pain, back pain, shortness of breath or cough. Denies any constipation or diarhea. Has not noted any blood in urine or stool. Denies any vaginal bleeding , discharge or concerns of STDs. Review of systems: As per history of present illness and below otherwise all systems reviewed and negative. Past medical history: As per history of present illness and as reviewed below otherwise noncontributory. Surgical history: As per history of present illness and as reviewed below otherwise noncontributory. Social history: See social history for further information Family history: As per history of present illness and as reviewed below otherwise noncontributory. Physical exam: General: Well-developed and well-nourished 24-year-old female. Alert and oriented. Nontoxic-appearing and in no acute distress. HEENT: Atraumatic, normocephalic, pupils equal and reactive bilaterally, negative for conjunctival pallor or scleral icterus, mucous membranes moist, TMs normal bilaterally, throat clear, neck supple, nontender, trachea midline. No drooling or trismus noted. No meningeal signs. No hot potato voice noted. Lungs: Clear to auscultation, breath sounds equal bilaterally, chest nontender. Heart: S1S2, regular rate and rhythm without overt murmur Abdomen: Soft, nondistended, suprapubic tenderness. Negative for masses or hepatosplenomegaly. Mild bilateral costovertebral tenderness. Pelvis: Stable nontender. Skin: Intact, warm, dry. No lesions or rashes noted. Extremities: Atraumatic, moves all extremities per self without difficulty or deficits, negative for cords or calf pain. Neurovascular unremarkable. Neuro: Awake, alert, oriented. Cranial nerves II through XII unremarkable. Cerebellum unremarkable. Motor and sensory unremarkable throughout. Exam nonfocal. Notes: Patient did have a UA done on 11/30/2019 which did show a UTI. There was no culture done on that sample. She continues to have UTI after 4 days of antibiotics. I will switch her to Cipro and add a urine culture, may have resistance. We discussed signs and symptoms that would prompt her to return to the emergency room. She is requesting something for home for pain; has been taking Tylenol and Ibuprofen (last doses last HS) without much relief. Supportive care measures were reviewed and discussed. Voices understanding and is agreeable to plan of care. Denies any further questions or concerns at this time. Diagnostics: CBC, CMP, UA Therapeutics: IV fluids, Zofran, Toradol, Pyridium Prescription: Cipro, Zofran, Tramadol (#15) Impression: UTI Plan: 1. Stop the Septra and start the Cipro antibiotic. Increase your oral fluids. Use the Zofran as direct for nausea. 2. Tylenol and/or ibuprofen as needed for pain management. Pyridium for bladder pain. 3. Please follow-up with your primary care provider as we discussed. Return to the ED as needed and as discussed. Definitive disposition and diagnosis as appropriate pending reevaluation and review of above. abdominal Pain Score (Numeric/FACES): 10 - Related Data Allergies Allergy/AdvReac Type Severity Reaction Status Date / Time No Known Allergies Allergy Verified 12/04/19 10:38 Home Meds: Home Meds Ondansetron [Zofran ODT] 4 mg PO Q6H PRN #10 tab.dis 10/27/18 [Rx] Cyclobenzaprine [Flexeril] 5 mg PO BEDTIME PRN 12/29/18 [History] Ibuprofen [Motrin] 800 mg PO Q8H PRN #90 tablet 01/14/19 [Rx] Sulfamethoxazole/Trimethoprim [Septra DS] 1 tab PO BID 12/04/19 [History] Past Medical History HEENT History: Reports: Other (See Below) Other HEENT History: wears glasses Cardiovascular History: Reports: None Other Cardiovascular History: pt reports hx of wearing heart monitor at age 15, pt states there was no dx Respiratory History: Reports: Other (See Below) Other Respiratory History: sports induced asthma in highschool Gastrointestinal History: Reports: None Genitourinary History: Reports: None EXECUTIVE ADMINISTRATIVE ASST History: Reports: Other EXECUTIVE ADMINISTRATIVE ASST History: 7 months - Estimated due date 01/20/19 Musculoskeletal History: Reports: None Neurological History: Reports: None Psychiatric History: Reports: ADHD, Anxiety, Depression, Other (See Below) Other Psychiatric History: depression, anxiety and ADHD in the past Endocrine/Metabolic History: Reports: None Hematologic History: Reports: None Immunologic History: Reports: None Oncologic (Cancer) History: Reports: None Dermatologic History: Reports: Eczema - Infectious Disease History Infectious Disease History: Reports: Chicken Pox - Past Surgical History Head Surgeries/Procedures: Reports: None HEENT Surgical History: Reports: None Cardiovascular Surgical History: Reports: None Respiratory Surgical History: Reports: None GI Surgical History: Reports: None Female Surgical History: Reports: Section Endocrine Surgical History: Reports: None Neurological Surgical History: Reports: None Musculoskeletal Surgical History: Reports: None Oncologic Surgical History: Reports: None Social & Family History - Family History Family Medical History: Noncontributory - Tobacco Use Smoking Status *Q: Current Every Day Smoker Years of Tobacco use: 9 Packs/Tins Daily: 0.5 - Caffeine Use Caffeine Use: Reports: Coffee - Recreational Drug Use Recreational Drug Use: No ED ROS GENERAL - Review of Systems Review Of Systems: Comprehensive ROS is negative, except as noted in HPI. ED EXAM, RENAL/ - Physical Exam Exam: See Below (See dictation) Course - Vital Signs Last Recorded V/S: Last Vital Signs Temp 98 F 12/04/19 10:35 Pulse 112 H 12/04/19 10:35 Resp 16 12/04/19 10:35 BP 107/70 12/04/19 10:35 Pulse Ox 96 12/04/19 10:35 - Orders/Labs/Meds Orders: Active Orders 24 hr Category Date Time Status Sodium Chloride 0.9% [Normal Saline] 1,000 ml Med 12/04/19 11:15 Active IV ASDIRECTED Medication Orders Sodium Chloride (Normal Saline) 1,000 mls @ 999 mls/hr IV ASDIRECTED RACHEL Last Admin: 12/04/19 11:19 Dose: 999 mls/hr Labs: Laboratory Tests 12/04/19 12/04/19 12/04/19 Range/Units 10:50 10:50 11:09 WBC 5.70 (4.0-11.0) K/uL RBC 4.61 (4.30-5.90) M/uL Hgb 13.4 (12.0-16.0) g/dL Hct 40.3 (36.0-46.0) % MCV 87.4 (80.0-98.0) fL MCH 29.1 (27.0-32.0) pg MCHC 33.3 (31.0-37.0) g/dL RDW Std Deviation 39.7 (28.0-62.0) fl RDW Coeff of Tessa 12 (11.0-15.0) % Plt Count 264 (150-400) K/uL MPV 11.50 (7.40-12.00) fL Neut % (Auto) 57.6 (48.0-80.0) % Lymph % (Auto) 27.9 (16.0-40.0) % [place] % (Auto) 12.3 (0.0-15.0) % Eos % (Auto) 1.8 (0.0-7.0) % Baso % (Auto) 0.4 (0.0-1.5) % Neut # (Auto) 3.3 (1.4-5.7) K/uL Lymph # (Auto) 1.6 (0.6-2.4) K/uL [place] # (Auto) 0.7 (0.0-0.8) K/uL Eos # (Auto) 0.1 (0.0-0.7) K/uL Baso # (Auto) 0.0 (0.0-0.1) K/uL Nucleated RBC % 0.0 /100WBC Nucleated RBCs # 0 K/uL Sodium (136-145) mmol/L Potassium (3.5-5.1) mmol/L Chloride (98-107) mmol/L Carbon Dioxide (21.0-32.0) mmol/L BUN (7.0-18.0) mg/dL Creatinine (0.6-1.0) mg/dL Est Cr Clr Drug Dosing mL/min Estimated GFR (MDRD) ml/min Glucose (74-106) mg/dL Calcium (8.5-10.1) mg/dL Total Bilirubin (0.2-1.0) mg/dL AST (15-37) IU/L ALT (14-63) IU/L Alkaline Phosphatase (46-116) U/L Total Protein (6.4-8.2) g/dL Albumin (3.4-5.0) g/dL Globulin (2.6-4.0) g/dL Albumin/Globulin Ratio (0.9-1.6) Urine Color DARK YELLOW Urine Appearance CLEAR Urine pH 6.0 (5.0-8.0) Ur Specific [place] >= 1.030 (1.001-1.035) Urine Protein NEGATIVE (NEGATIVE) mg/dL Urine Glucose (UA) NEGATIVE (NEGATIVE) mg/dL Urine Ketones NEGATIVE (NEGATIVE) mg/dL Urine Occult Blood TRACE-INTACT H (NEGATIVE) Urine Nitrite NEGATIVE (NEGATIVE) Urine Bilirubin MODERATE H (NEGATIVE) Urine Ictotest POSITIVE Urine Urobilinogen 1.0 (<2.0) EU/dL Ur Leukocyte Esterase NEGATIVE (NEGATIVE) Urine RBC 0-3 (0-2/HPF) Urine WBC 0-2 (0-5/HPF) Ur Epithelial Cells MODERATE (NONE-FEW) Urine Bacteria 1+ H (NEGATIVE) Urine Mucus LIGHT (NONE-MOD) Urine HCG, Qual NEGATIVE (NEGATIVE) 12/04/19 Range/Units 11:09 WBC (4.0-11.0) K/uL RBC (4.30-5.90) M/uL Hgb (12.0-16.0) g/dL Hct (36.0-46.0) % MCV (80.0-98.0) fL MCH (27.0-32.0) pg MCHC (31.0-37.0) g/dL RDW Std Deviation (28.0-62.0) fl RDW Coeff of Tessa (11.0-15.0) % Plt Count (150-400) K/uL MPV (7.40-12.00) fL Neut % (Auto) (48.0-80.0) % Lymph % (Auto) (16.0-40.0) % [place] % (Auto) (0.0-15.0) % Eos % (Auto) (0.0-7.0) % Baso % (Auto) (0.0-1.5) % Neut # (Auto) (1.4-5.7) K/uL Lymph # (Auto) (0.6-2.4) K/uL [place] # (Auto) (0.0-0.8) K/uL Eos # (Auto) (0.0-0.7) K/uL Baso # (Auto) (0.0-0.1) K/uL Nucleated RBC % /100WBC Nucleated RBCs # K/uL Sodium 138 (136-145) mmol/L Potassium 3.4 L (3.5-5.1) mmol/L Chloride 102 (98-107) mmol/L Carbon Dioxide 23.3 (21.0-32.0) mmol/L BUN 6 L (7.0-18.0) mg/dL Creatinine 1.1 H (0.6-1.0) mg/dL Est Cr Clr Drug Dosing 67.51 mL/min Estimated GFR (MDRD) > 60.0 ml/min Glucose 112 H (74-106) mg/dL Calcium 8.8 (8.5-10.1) mg/dL Total Bilirubin 0.5 (0.2-1.0) mg/dL AST 20 (15-37) IU/L ALT 32 (14-63) IU/L Alkaline Phosphatase 57 (46-116) U/L Total Protein 7.5 (6.4-8.2) g/dL Albumin 3.5 (3.4-5.0) g/dL Globulin 4.0 (2.6-4.0) g/dL Albumin/Globulin Ratio 0.9 (0.9-1.6) Urine Color Urine Appearance Urine pH (5.0-8.0) Ur Specific [place] (1.001-1.035) Urine Protein (NEGATIVE) mg/dL Urine Glucose (UA) (NEGATIVE) mg/dL Urine Ketones (NEGATIVE) mg/dL Urine Occult Blood (NEGATIVE) Urine Nitrite (NEGATIVE) Urine Bilirubin (NEGATIVE) Urine Ictotest Urine Urobilinogen (<2.0) EU/dL Ur Leukocyte Esterase (NEGATIVE) Urine RBC (0-2/HPF) Urine WBC (0-5/HPF) Ur Epithelial Cells (NONE-FEW) Urine Bacteria (NEGATIVE) Urine Mucus (NONE-MOD) Urine HCG, Qual (NEGATIVE) Meds: Medications Generic Name Dose Route Start Last Admin Trade Name Freq PRN Reason Stop Dose Admin Sodium Chloride 1,000 mls @ 999 mls/hr 12/04/19 11:15 12/04/19 11:19 Normal Saline IV 999 mls/hr ASDIRECTED RACHEL Administration Discontinued Medications Generic Name Dose Route Start Last Admin Trade Name Freq PRN Reason Stop Dose Admin Ketorolac Tromethamine 30 mg 12/04/19 11:49 12/04/19 12:24 Toradol IVPUSH 12/04/19 11:50 30 mg ONETIME ONE Administration Ondansetron HCl 4 mg 12/04/19 11:05 12/04/19 11:19 Zofran IVPUSH 12/04/19 11:06 4 mg ONETIME ONE Administration Phenazopyridine HCl 200 mg 12/04/19 11:49 12/04/19 12:25 Pyridium PO 12/04/19 11:50 200 mg ONETIME ONE Administration Departure - Departure Time of Disposition: 12:24 Disposition: Home, Self-Care 01 Clinical Impression: UTI (urinary tract infection) Qualifiers: Urinary tract infection type: site unspecified Hematuria presence: without hematuria Qualified Code(s): N39.0 - Urinary tract infection, site not specified - Discharge Information Instructions: Urinary Tract Infection, Adult, [id number] Referrals: PCP,None [Primary Care Provider] - Forms: ED Department Discharge Additional Instructions: The following information is given to patients seen in the emergency department who are being discharged to home. This information is to outline your options for follow-up care. We provide all patients seen in our emergency department with a follow-up referral. The need for follow-up, as well as the timing and circumstances, are variable depending upon the specifics of your emergency department visit. If you don't have a primary care physician on staff, we will provide you with a referral. We always advise you to contact your personal physician following an emergency department visit to inform them of the circumstance of the visit and for follow-up with them and/or the need for any referrals to a consulting specialist. The emergency department will also refer you to a specialist when appropriate. This referral assures that you have the opportunity for follow-up care with a specialist. All of these measure are taken in an effort to provide you with optimal care, which includes your follow-up. Under all circumstances we always encourage you to contact your private physician who remains a resource for coordinating your care. When calling for follow-up care, please make the office aware that this follow-up is from your recent emergency room visit. If for any reason you are refused follow-up, please contact the [facility] Emergency Department at and asked to speak to the emergency department charge nurse. [facility] [address] [place] [address] [id number] [facility] [address] [place] [id number] 1. Stop the Septra and start the Cipro antibiotic. Increase your oral fluids. Use the Zofran as direct for nausea. 2. Tylenol and/or ibuprofen as needed for pain management. Pyridium for bladder pain. 3. Please follow-up with your primary care provider as we discussed. Return to the ED as needed and as discussed. Sepsis Event Note - Evaluation Sepsis Screening Result: No Definite Risk - Focused Exam Vital Signs: Vital Signs Temp Pulse Resp BP Pulse Ox 12/04/19 10:35 98 F 112 H 16 107/70 96 Date Exam was Performed: 12/04/19 Time Exam was Performed: 12:30 - My Orders Last 24 Hours: My Active Orders 12/04/19 11:15 Sodium Chloride 0.9% [Normal Saline] 1,000 ml IV ASDIRECTED - Assessment/Plan Last 24 Hours: My Active Orders 12/04/19 11:15 Sodium Chloride 0.9% [Normal Saline] 1,000 ml IV ASDIRECTED
[2019-12-04 14:56] VITALS: BP 110/68; PULSE 82
== END 2019-12-04 12:40 | disposition home or self-care (01) ==
LOC: MW.ED 10:25
DX: N39.0 Urinary tract infection, site not specified (principal); F17.210 Nicotine dependence, cigarettes, uncomplicated; Z79.899 Other long term (current) drug therapy
CPT/HCPCS: 36415; 80053; 81001; 81025; 85025; 96361; 96374; 96375; 99284; A9270; J1885; J2405; J7030

== ENCOUNTER 2021-06-06 11:18 | Emergency (ER) | payer BC, MEDICAID ==
[2021-06-06 12:25] VITALS: BP 120/81; PULSE 85
--- NOTE | 2021-06-06 12:33 | EDM.PDOC ---
ED HPI GENERAL MEDICAL PROBLEM - General Chief Complaint: Genitourinary Problem Stated Complaint: UNKNOWN Time Seen by Provider: 06/06/21 11:38 Source of Information: Reports: Patient History Limitations: Reports: No Limitations - History of Present Illness INITIAL COMMENTS - FREE TEXT/NARRATIVE: HISTORY AND PHYSICAL: History of present illness: Patient is a 26-year-old female who presents to the emergency room with complaints of a sore to her left labia. Patient states she is unsure if she scratched herself or has a lesion but she has an area that is uncomfortable and hurts when she voids. Patient states she has not had sex in 8+ weeks, no vaginal discharge or bleeding. She has no concerns for . She does state that 8 to 10 years ago she did have her initial outbreak of genital herpes, has not had any outbreaks since. She does not recall what it felt like her look like. Believes this could be with going on today. Patient denies any fever, chills, headache, change in vision, syncope or near syncope. Denies any chest pain, back pain, shortness of breath or cough. Denies any GI or symptoms. Patient has been eating and drinking appropriately. Review of systems: As per history of present illness and below otherwise all systems reviewed and negative. Past medical history: As per history of present illness and as reviewed below otherwise nonc ontributory. Surgical history: As per history of present illness and as reviewed below otherwise noncontributory. Social history: See social history for further information Family history: As per history of present illness and as reviewed below otherwise noncontributory. Physical exam: General: Well developed and well nourished. Alert and orientated x 3. Nontoxic in appearance and in no acute distress. Vital signs are stable and have been reviewed by me. Nursing notes were reviewed. HEENT: Atraumatic, normocephalic, pupils equal and reactive bilaterally, negative for conjunctival pallor or scleral icterus, mucous membranes moist, TMs normal bilaterally, throat clear, neck supple, nontender, trachea midline. No drooling or trismus noted. No meningeal signs. No hot potato voice noted. Lungs: Clear to auscultation bilaterally. No wheezes, rales, or rhonchi. Chest nontender. Normal work of breathing, no accessory muscles used. Heart: S1S2, regular rate and rhythm without overt murmur, gallops, or rubs. No JVD. No peripheral edema Abdomen: Soft, nondistended, nontender. Genitourinary/Rectal: This was done with consent and a auto machinist at the bedside. Small herpetic appearing lesion to the left labia. Otherwise normal-appearing external genitalia. Skin: Intact, warm, dry. No lesions or rashes noted. Hematologic: No petechiae or purpra. Mucosa appropriate color and normal nail bed color and refill. Extremities: Atraumatic, moves all extremities per self without difficulty or deficits, negative for cords or calf pain. Neurovascular unremarkable. Neuro: Awake, alert, oriented. Cranial nerves II through XII unremarkable. Cerebellum unremarkable. Motor and sensory unremarkable throughout. Exam nonfocal. Psychiatric: Mood and affect are appropriate. Normal thought process. Answering questions appropriately. Please note that the patient was seen and evaluated during the 2019 SARS-CoV-2 novel coronavirus pandemic period. Community viral transmission is ongoing at time of this encounter and the emergency department is operating under pandemic response procedures. Medical Decision Making: Patient does appear to have an herpes outbreak, given that she has a history of this I do not feel she needs to be reswabbed. I did offer this to the patient and she declines. We also discussed doing a urine, urine and further STD testing. She said she has not been sexually active in several months and declines wanting a full pelvic exam with swabs. Will treat with acyclovir and topical Lidoderm gel. Encourage patient to follow-up with her FUNDING ANALYST if she co ntinues to have symptoms that she may need further testing. I have talked with the patient about today's findings, in addition to providing specific details for plan of care. Reassessment at the time of disposition demonstrates that the patient is in no acute distress. The patient is stable for discharge, counseling was provided and we discussed in great detail signs and symptoms that would prompt them to return to the Emergency Department. Medication, follow up and supportive care measures were reviewed and discussed. Voices understanding and is agreeable to plan of care. Denies any further questions or concerns at this time. Diagnostics: None Therapeutics: None Prescription: Valtrex, Lidocaine topical Impression: Genital herpes Plan: 1. You were evaluated today on an emergent basis. Your lesion does appear to be a herpes simplex virus, given that you have a history of this it is consistent. I would like you to start the Valtrex 1 tab twice daily over the next 3 days. I did give you a refill if you should note that you have onset of this in the future. Therapy is most effective when medication is started within the 48 to 72 hours of onset of symptoms. 2. You can alternate Tylenol and ibuprofen as needed for pain and fever management. Topical lidocaine to painful area as needed. 3. We encourage you to follow up with your primary care provider and/or OBGYN in the next few days for re-evaluation and further care/management. 4. If your symptoms should worsen, new symptoms develop or any of the signs and symptoms we discussed should arise please return to the emergency room or call 911 (if needed). Definitive disposition and diagnosis as appropriate pending reevaluation and review of above. Vaginal Pain Score (Numeric/FACES): 5 - Related Data Allergies Allergy/AdvReac Type Severity Reaction Status Date / Time No Known Allergies Allergy Verified 06/06/21 12:23 Home Meds: Home Meds Lidocaine 2% [Xylocaine 2% Viscous] 15 ml PO ASDIRECTED PRN #1 cup 06/06/21 [Rx] valACYclovir HCl [Valtrex] 500 mg PO BID 3 Days #6 tablet 06/06/21 [Rx] Past Medical History - Past Health History Medical/Surgical History: Denies Medical/Surgical History HEENT History: Reports: Other (See Below) Other HEENT History: wears glasses Cardiovascular History: Reports: None Other Cardiovascular History: pt reports hx of wearing heart monitor at age 15, pt states there was no dx Respiratory History: Reports: Other (See Below) Other Respiratory History: sports induced asthma in highschool Gastrointestinal History: Reports: None Genitourinary History: Reports: None FUNDING ANALYST History: Reports: Other FUNDING ANALYST History: 7 months - Estimated due date 01/20/19 Musculoskeletal History: Reports: None Neurological History: Reports: None Psychiatric History: Reports: ADHD, Anxiety, Depression, Other (See Below) Other Psychiatric History: depression, anxiety and ADHD in the past Endocrine/Metabolic History: Reports: None Hematologic History: Reports: None Immunologic History: Reports: None Oncologic (Cancer) History: Reports: None Dermatologic History: Reports: Eczema - Infectious Disease History Infectious Disease History: Reports: Chicken Pox - Past Surgical History Head Surgeries/Procedures: Reports: None HEENT Surgical History: Reports: None Cardiovascular Surgical History: Reports: None Respiratory Surgical History: Reports: None GI Surgical History: Reports: None Female Surgical History: Reports: Section Endocrine Surgical History: Reports: None Neurological Surgical History: Reports: None Musculoskeletal Surgical History: Reports: None Oncologic Surgical History: Reports: None Social & Family History - Family History Family Medical History: No Pertinent Family History - Tobacco Use Tobacco Use Status *Q: Never Tobacco User - Caffeine Use Caffeine Use: Reports: Coffee - Recreational Drug Use Recreational Drug Use: No ED ROS GENERAL - Review of Systems Review Of Systems: Comprehensive ROS is negative, except as noted in HPI. ED EXAM, SKIN/RASH Exam: See Below (See dictation) Course - Vital Signs Last Recorded V/S: Last Vital Signs Temp 98.8 F 06/06/21 12:23 Pulse 85 06/06/21 12:23 Resp 16 06/06/21 12:23 BP 120/81 06/06/21 12:23 Pulse Ox 98 06/06/21 12:23 Departure - Departure Time of Disposition: 12:33 Disposition: Home, Self-Care 01 Clinical Impression: Genital herpes Qualifiers: Herpes simplex infection site: unspecified Qualified Code(s): A60.00 - Herpesviral infection of urogenital system, unspecified - Discharge Information Prescriptions: valACYclovir HCl [Valtrex] 500 mg PO BID 3 Days #6 tablet Lidocaine 2% [Xylocaine 2% Viscous] 15 ml PO ASDIRECTED PRN #1 cup PRN Reason: Pain Instructions: Genital Herpes Referrals: PCP,None [Primary Care Provider] - Forms: ED Department Discharge Additional Instructions: The following information is given to patients seen in the emergency department who are being discharged to home. This information is to outline your options for follow-up care. We provide all patients seen in our emergency department with a follow-up referral. The need for follow-up, as well as the timing and circumstances, are variable depending upon the specifics of your emergency department visit. If you don't have a primary care physician on staff, we will provide you with a referral. We always advise you to contact your personal physician following an emergency department visit to inform them of the circumstance of the visit and for follow-up with them and/or the need for any referrals to a consulting specialist. The emergency department will also refer you to a specialist when appropriate. This referral assures that you have the opportunity for follow-up care with a specialist. All of these measure are taken in an effort to provide you with optimal care, which includes your follow-up. Under all circumstances we always encourage you to contact your private physician who remains a resource for coordinating your care. When calling for follow-up care, please make the office aware that this follow-up is from your recent emergency room visit. If for any reason you are refused follow-up, please contact the [facility] Emergency Department at and asked to speak to the emergency department charge nurse. [facility] [address] [place] [address] [facility] [address] [place] [id number] Thank you for choosing the [facility] emergency department in [place] for your medical needs today. It was a pleasure caring for you. Today you were seen in the emergency department for vaginal lesion. 1. You were evaluated today on an emergent basis. Your lesion does appear to be a herpes simplex virus, given that you have a history of this it is consistent. I would like you to start the Valtrex 1 tab twice daily over the next 3 days. I did give you a refill if you should note that you have onset of this in the future. Therapy is most effective when medication is started within the 48 to 72 hours of onset of symptoms. 2. You can alternate Tylenol and ibuprofen as needed for pain and fever management. Topical lidocaine to painful area as needed. 3. We encourage you to follow up with your primary care provider and/or OBGYN in the next few days for re-evaluation and further care/management. 4. If your symptoms should worsen, new symptoms develop or any of the signs and symptoms we discussed should arise please return to the emergency room or call 911 (if needed). Sepsis Event Note (ED) - Evaluation Sepsis Screening Result: No Definite Risk - Focused Exam Vital Signs: Vital Signs Temp Pulse Resp BP Pulse Ox 06/06/21 12:23 98.8 F 85 16 120/81 98
== END 2021-06-06 12:43 | disposition home or self-care (01) ==
LOC: MW.ED 11:18
DX: A60.00 Herpesviral infection of urogenital system, unspecified (principal)
CPT/HCPCS: 99282

== ENCOUNTER 2022-12-31 14:58 | Emergency (ER) | payer MEDICAID ==
[2022-12-31] MEDS ORDERED: Sodium Chloride 0.9% 2.5 ML Syringe FLUSH PRN (15:06)
[2022-12-31] MEDS ORDERED: Sodium Chloride 0.9% 10 ML Syringe FLUSH PRN (15:06)
[2022-12-31] MEDS ORDERED: Sodium Chloride 0.9% 20 ML SDV IV PRN (15:06)
[2022-12-31] MEDS ORDERED: Iopamidol 755 MG/ML 500 ML Multipack Bottle IVPUSH STA (15:24)
[2022-12-31 15:56] LABS: CARBON DIOXIDE,CO2 24.8 mmol/L (21.0-32.0); POTASSIUM,K 4.2 mmol/L (3.5-5.1)
[2022-12-31 18:58] VITALS: BP 118/80; PULSE 67
== END 2022-12-31 19:00 ==
LOC: MW.ED 14:58
DX: R53.1 Weakness (principal); R20.0 Anesthesia of skin; R55 Syncope and collapse
CPT/HCPCS: 36415; 70450; 70496; 70498; 80053; 81003; 82947; 84703; 85025; 85610; 85730; 93005; 99285; J3490; Q9967; 93010